=== PATIENT | male | born 1950 | race Caucasian/White ===

== ENCOUNTER → 2023-12-18 | Outpatient (CLI) | payer MEDICARE ==
--- NOTE | 2023-12-18 12:34 | CA ---
Transthoracic Echo Report Name: Spencer Apodaca Age: 73 Gender: M : 1950 Exam Date: 12/18/2023 08:20 Exam Location: [facility] Ht (in): 66 Wt (lb): 240 Ordering Physician: Jeri Morales DO Attending/Referring Phys: Chuyita Palacios [facility] [employer] Manager Maryan Carrasco RDCS Procedure CPT: Indications: R03.0 ELEVATED BLOOD-PRESSURE READING, W/O DIAGNOS Cardiac Hx: Technical Quality: Fair Contrast 1: Total Dose (mL): Contrast 2: Total Dose (mL): MEASUREMENTS (Male / Female) Normal Values 2D ECHO LV Diastolic Diameter PLAX 4.2 cm 4.2 - 5.9 / 3.9 - 5.3 cm LV Systolic Diameter PLAX 2.9 cm IVS Diastolic Thickness 1.5 cm 0.6 - 1.0 / 0.6 - 0.9 cm LVPW Diastolic Thickness 1.6 cm 0.6 - 1.0 / 0.6 - 0.9 cm LV Relative Wall Thickness 0.7 RV Internal Dim ED PLAX 3.4 cm LA Volume 64.8 cm??? 18 - 58 / 22 - 52 cm??? LA Volume Index 28.1 cm???/m??? 16 - 28 cm???/m??? M-MODE Aortic Root Diameter MM 2.9 cm LA Systolic Diameter MM 4.2 cm LA Ao Ratio MM 1.4 AV Cusp Separation MM 1.6 cm DOPPLER AV Peak Velocity 168.8 cm/s AV Peak Gradient 11.4 mmHg AV Mean Velocity 107.2 cm/s AV Mean Gradient 5.3 mmHg AV Velocity Time Integral 33.0 cm LVOT Peak Velocity 95.4 cm/s LVOT Peak Gradient 3.6 mmHg LVOT Velocity Time Integral 22.4 cm MV Area PHT 3.2 cm??? Mitral E Point Velocity 71.5 cm/s Mitral A Point Velocity 75.3 cm/s Mitral E to A Ratio 0.9 MV Deceleration Time 240.1 ms MV E' Velocity 5.6 cm/s Mitral E to MV E' Ratio 12.7 TR Peak Velocity 190.1 cm/s TR Peak Gradient 14.5 mmHg Right Ventricular Systolic Press 19.0 mmHg FINDINGS Left Ventricle Moderately increased left ventricular wall thickness. Left ventricular cavity size normal. Normal left ventricular systolic function with no obvious regional wall motion abnormalities. Left ventricular ejection fraction is estimated at 55-60 %. Right Ventricle Normal right ventricular size and function. Right ventricular systolic pressure within normal limits. Right Atrium Normal right atrial size. Left Atrium Mildly increased left atrial volume. Mildly increased left atrial area. Mitral Valve Structurally normal mitral valve. Mild mitral annular calcification. Mild mitral regurgitation. Aortic Valve Trileaflet aortic valve. No aortic valve stenosis or regurgitation. Tricuspid Valve Structurally normal tricuspid valve. Mild tricuspid regurgitation. Pulmonic Valve Structurally normal pulmonic valve. Pericardium No pericardial effusion. Aorta Normal size aortic root and proximal ascending aorta. CONCLUSIONS 1. Normal left ventricle size and systolic function with left ventricular hypertrophy 2. Mild mitral and tricuspid regurgitation Previewed by: Dr. Nathan Rocha MD (Electronically Signed) Final Date: 18 December 2023 12:33
== END | disposition home or self-care (01) ==
LOC: RADECHMAIN 08:03
PROVIDERS: ATTEND Family Medicine
DX: I34.0 Nonrheumatic mitral (valve) insufficiency (principal); I36.1 Nonrheumatic tricuspid (valve) insufficiency; I51.7 Cardiomegaly; R03.0 Elevated blood-pressure reading, without diagnosis of hypertension
CPT/HCPCS: 93306